=== PATIENT | male | born 1950 | race Caucasian/White ===

== ENCOUNTER 2018-05-22 23:51 | Inpatient (IN) | payer OTHER, MEDICARE ==
[2018-05-23] MEDS ORDERED: NORMAL SALINE 1000 ML 1,000 ML IV ONE (00:08)
--- NOTE | 2018-05-23 00:10 | ER Document Report ---
ED General - General Chief Complaint: Altered Mental Status Stated Complaint: ALTERED MENTAL STATUS Time Seen by Provider: 05/23/18 00:00 Notes: Patient is a 68-year-old male who comes emergency department for chief complaint of altered mental status. He is here with his grandson. Grandson stays with him, states he last saw him yesterday, states he came home today and found him walking around in the yard swatting at things that were not there. He was completely confused. He is normally completely oriented and does not have a history of dementia. No trauma, fever, or other abnormalities reported. On my examination patient will follow directions but he is unable to answer questions about what happened or where he is. Past medical history of insulin- dependent diabetes, son states that he was complaining of pain over his left ribs after he pulled a muscle (denies any fall or trauma), states he was prescribed this a couple of days ago and did not take more than the prescribed amount as far as he knows. He comes by EMS. Past Medical History - General Information source: Relative - grandson - Social History Smoking Status: Never Smoker Frequency of alcohol use: None Drug Abuse: None Lives with: Family Family History: Reviewed & Not Pertinent Patient has suicidal ideation: No Patient has homicidal ideation: No - Past Medical History Cardiac Medical History: Reports: Hx DVT Endocrine Medical History: Reports: Hx Diabetes Mellitus Type 2 Renal/ Medical History: Denies: Hx Peritoneal Dialysis - Immunizations Hx Diphtheria, Pertussis, Tetanus Vaccination: Yes Review of Systems - Review of Systems Constitutional: See HPI EENT: No symptoms reported Cardiovascular: No symptoms reported Respiratory: No symptoms reported Gastrointestinal: No symptoms reported Genitourinary: No symptoms reported Male Genitourinary: No symptoms reported Musculoskeletal: No symptoms reported Skin: No symptoms reported Hematologic/Lymphatic: No symptoms reported Neurological/Psychological: See HPI Physical Exam - Vital signs Vitals: Temp Pulse Resp BP Pulse Ox 97.6 F 102 H 19 123/74 90 L 05/22/18 23:59 05/22/18 23:59 05/22/18 23:59 05/22/18 23:59 05/22/18 23:59 - Notes Notes: GENERAL: Alert, no distress, disheveled appearance HEAD: Normocephalic, atraumatic. EYES: Pupils equal, round, and reactive to light. Extraocular movements intact. ENT: Oral mucosa moist, tongue midline. NECK: Full range of motion. Supple. Trachea midline. LUNGS: Clear to auscultation bilaterally, no wheezes, rales, or rhonchi. No respiratory distress. Occasional mild cough. HEART: Tachycardic, normal rhythm, no murmur ABDOMEN: Soft, non-tender. Non-distended. Bowel sounds present in all 4 quadrants. EXTREMITIES: Moves all 4 extremities spontaneously. No edema, normal radial and dorsalis pedis pulses bilaterally. No cyanosis. BACK: no cervical, thoracic, lumbar midline tenderness. No saddle anesthesia, normal distal neurovascular exam. NEUROLOGICAL: Patient is alert, he follows directions, however he is confused. He is unable to tell me where he is, who he is with, or the events of today. Normal upper and lower extremity strength, neurovascular exam. Cranial nerves grossly intact. SKIN: Warm, dry, normal turgor. No rashes or lesions noted. Course - Re-evaluation Re-evalutation: Patient is altered clearly on exam although he will follow directions. CAT scan of the head unremarkable, chest x-ray with no overt abnormality. Patient has no concerning physical exam findings, has mild cough, has had cough for a few days, mild leukocytosis, no fever. No overt evidence of pneumonia. Borderline hypoxia when he falls asleep, placed on 2 L nasal cannula and this resolved. Chemistry shows renal insufficiency, LFTs mildly elevated, direct bilirubin unremarkable, nontender abdomen. CK is elevated at greater than 2300, troponin indeterminate. Patient given IV fluids, will be given more. Urinalysis shows dehydration but no infection. Patient has improved since he arrived, he is more cooperative and calm, however he remains confused. Unsure if this is metabolic, medication related, or other etiology. Will admit for altered mental status, acute renal insufficiency, rhabdomyolysis. Discussed this with grandson. Patient actually states agreement with staying as well. Discussed with Dr. Cowan, patient will be admitted to telemetry full admission. - Vital Signs Vital signs: Temp Pulse Resp BP Pulse Ox 97.8 F 86 20 135/71 H 97 05/23/18 04:49 05/23/18 04:49 05/23/18 04:49 05/23/18 04:49 05/23/18 04:49 - Laboratory Result Diagrams: 05/22/18 22:36 05/23/18 00:50 Laboratory results interpreted by me: 05/22/18 05/23/18 05/23/18 22:36 00:37 00:50 WBC 13.7 H Absolute Neutrophils 10.6 H Sodium 146.9 H BUN 34 H Creatinine 1.70 H Est GFR ( Amer) 49 L Est GFR (Non-Af Amer) 40 L Glucose 150 H Total Bilirubin 2.0 H AST 100 H ALT 101 H Creatine Kinase 2399 H Total Protein 8.5 H Albumin 5.1 H Urine Protein 30 H Urine Ketones TRACE H Urine Blood SMALL H Urine Urobilinogen 2.0 H Salicylates < 1.0 L Acetaminophen < 10 L Discharge - Discharge Clinical Impression: Acute renal insufficiency Altered mental status Qualifiers: Altered mental status type: unspecified Qualified Code(s): R41.82 - Altered mental status, unspecified Rhabdomyolysis Qualifiers: Rhabdomyolysis type: non-traumatic Qualified Code(s): M62.82 - Rhabdomyolysis Condition: Stable Disposition: ADMITTED INPATIENT Admitting Provider: Hospitalist Unit Admitted: Telemetry
[2018-05-23 00:32] LABS: ABSOLUTE LYMPHOCYTES (AUTO) 1.8 10^3/uL (0.5-4.7); ABSOLUTE MONOCYTES (AUTO) 1.2 10^3/uL (0.1-1.4); ABSOLUTE NEUT (AUTO) 10.6 10^3/uL (1.7-8.2); BASOPHILS % (AUTO) 0.2 % (0-2); EOSINOPHILS % (AUTO) 0.2 % (0-6); HEMATOCRIT 49.9 % (37.9-51.0); HEMOGLOBIN 16.9 g/dL (13.5-17.0); LYMPHOCYTES % (AUTO) 13.2 % (13-45); MEAN CORPUSCULAR HEMOGLOBIN 30.9 pg (27.0-33.4); MEAN CORPUSCULAR HGB CONC 33.8 g/dL (32.0-36.0); MEAN CORPUSCULAR VOLUME 91 fl (80-97); PLATELET COUNT 290 10^3/uL (150-450); RED BLOOD COUNT 5.46 10^6/uL (4.35-5.55); RED CELL DISTRIBUTION WIDTH 13.4 % (11.5-14.0); SEGMENTED NEUTROPHILS % (AUTO) 77.4 % (42-78); TOTAL CELLS COUNTED % (AUTO) 100 %; WHITE BLOOD COUNT 13.7 10^3/uL (4.0-10.5)
[2018-05-23 00:57] LABS: APPEARANCE,URINE SLIGHTLY-CLOUDY; BILIRUBIN,URINE NEGATIVE (NEGATIVE); COLOR,URINE AMBER; GLUCOSE, URINE NEGATIVE (NEGATIVE); KETONES,URINE TRACE mg/dL (NEGATIVE); LEUKOCYTE ESTERASE,URINE NEGATIVE (NEGATIVE); NITRITE,URINE NEGATIVE (NEGATIVE); PROTEIN,URINE 30 mg/dL (NEGATIVE); URINE SPECIFIC GRAVITY 1.018
[2018-05-23 01:10] LABS: URINE AMPHETAMINES SCREEN NEGATIVE; URINE BARBITURATES SCREEN NEGATIVE; URINE BENZODIAZEPINES SCREEN NEGATIVE; URINE COCAINE SCREEN NEGATIVE; URINE MARIJUANA (THC) SCREEN NEGATIVE; URINE METHADONE SCREEN NEGATIVE; URINE PHENCYCLIDINE SCREEN NEGATIVE
[2018-05-23 01:14] LABS: ALANINE AMINOTRANSFERASE 101 U/L (21-72); ALBUMIN 5.1 g/dL (3.5-5.0); ALKALINE PHOSPHATASE 73 U/L (38-126); ANION GAP 18 (5-19); ASPARTATE AMINO TRANSFERASE 100 U/L (17-59); BILIRUBIN,DIRECT 0.4 mg/dL (0.0-0.4); BLOOD UREA NITROGEN 34 mg/dL (7-20); CARBON DIOXIDE 24 mmol/L (22-30); CHLORIDE 105 mmol/L (98-107); GLUCOSE 150 mg/dL (75-110); POTASSIUM 4.6 mmol/L (3.6-5.0); SODIUM 146.9 mmol/L (137-145); TOTAL PROTEIN 8.5 g/dL (6.3-8.2)
[2018-05-23 01:15] LABS: ACETAMINOPHEN < 10 ug/mL (10-30); ALCOHOL < 10 mg/dL (NONE DETECTED); SALICYLATE < 1.0 mg/dL (2.0-20.0)
[2018-05-23 01:24] LABS: CREATINE KINASE 2399 U/L (55-170)
--- NOTE | 2018-05-23 01:32 | RADIOLOGY REPORT (SQ) ---
CT HEAD NON CONTRAST Clinical history: Acute mental status change Technique: Multiple axial images are taken from the level the vertex down to the base of the skull without the use of IV contrast. Sagittal and coronal reconstructed images are also performed. Exam was performed using the lowest radiation dose possible to allow for diagnostic images. This exam was performed according to our departmental dose-optimization program which includes use of Automated Exposure Control, adjustment of the mA and/or kV according to patient size and/or use of iterative reconstruction technique. Comparison: None. Findings: There is no evidence for acute intraparenchymal hemorrhage. There is no midline shift. There is no abnormal extra-axial fluid collection. Ventricles measure within normal limits. Sinuses are well aerated. Mastoid air cells well aerated. No evidence for depressed calvarial skull fracture. Soft tissues are grossly unremarkable. Impression: No noncontrast CT evidence for acute intracranial pathology.
--- NOTE | 2018-05-23 01:42 | RADIOLOGY REPORT (SQ) ---
CHEST XRAY CLINICAL HISTORY: Chest pain COMPARISON: None. TECHNIQUE: 2 view chest is submitted for review. FINDINGS: Lung volumes are low without evidence for acute infiltrate or effusion. Eventration of the right hemidiaphragm is demonstrated. The cardiac silhouette is enlarged, Pulmonary vascularity is unremarkable. Osseous structures are within expected limits for patients age. . IMPRESSION: Cardiomegaly which may be accentuated by low lung volumes.
[2018-05-23] MEDS: NORMAL SALINE 1000 ML 1,000 ML IV PRN (02:13)
[2018-05-23] MEDS ORDERED: IPRATROPIUM/ALBUTEROL 0.5-2.5 MG/3 ML AMPUL NEB PRN (02:25)
[2018-05-23] MEDS ORDERED: NORMAL SALINE 1000 ML 1,000 ML IV PRN (02:25)
[2018-05-23] MEDS ORDERED: ACETAMINOPHEN 325 MG TABLET PO PRN (02:25)
[2018-05-23] MEDS ORDERED: ONDANSETRON HCL INJ/PF 4 MG/2 ML SDV IV PRN (02:25)
--- NOTE | 2018-05-23 07:26 | PDOC H&P ---
History of Present Illness Admission Date/PCP: 05/23/18 02:25 Patient complains of: Altered mental status History of Present Illness: ANNIE MCKEON is a 68 year old male with a past medical history of diabetes who comes emergency department for chief complaint of altered mental status. He is here with his grandson. Grandson stays with him, states he last saw him yesterday, states he came home today and found him walking around in the yard swatting at things that were not there. He was completely confused. He is normally completely oriented and does not have a history of dementia. No trauma , fever, or other abnormalities reported. Patient is able to follow directions but he is unable to answer questions about what happened or where he is. As per his son states that he was complaining of pain over his left ribs after he pulled a muscle (denies any fall or trauma), states he was prescribed Flexeril a couple of days ago and did not take more than the prescribed amount as far as he knows. No history of abdominal pain no chest pain or shortness of breath nausea vomiting or diarrhea. No history of urinary symptoms. No focal weakness or numbness. On arrival to the emergency nasal vitals are stable. His laboratory workup showed white count of 13,000. His chemistry showed sodium of 147 with BUN of 34 and creatinine was 1.7. No baseline labs available to compare. His CK was 2400. Troponin was negative. UA was unremarkable. Urine toxicology was unremarkable. CT head was unremarkable. Chest x-ray shows cardiomegaly without acute process. Patient was referred to hospital service for further workup of altered mental status. Past Medical History Cardiac Medical History: Reports: DVT Endocrine Medical History: Reports: Diabetes Mellitus Type 2 Past Surgical History Past Surgical History: Reports: None Social History Information Source: Relative Lives with: Family Smoking Status: Never Smoker Last Time Smoked: 30 years ago Frequency of Alcohol Use: None Hx Recreational Drug Use: No Drugs: None Hx Prescription Drug Abuse: No Family History Family History: Reviewed & Not Pertinent Parental Family History Reviewed: No Children Family History Reviewed: No Sibling(s) Family History Reviewed.: No Review of Systems All systems: reviewed and no additional remarkable complaints except as stated Physical Exam Vital Signs: Temp Pulse Resp BP Pulse Ox 97.8 F 86 20 135/71 H 97 05/23/18 04:49 05/23/18 04:49 05/23/18 04:49 05/23/18 04:49 05/23/18 04:49 Intake & Output 05/21/18 05/22/18 05/23/18 06:59 06:59 06:59 Weight 210 lb 8.663 oz General appearance: PRESENT: no acute distress, well-developed, well-nourished Head exam: PRESENT: atraumatic, normocephalic Eye exam: ABSENT: conjunctival injection, conjunctiva pink, conjunctiva pale, EOMI, nystagmus, periorbital swelling, PERRLA, scleral icterus, other Ear exam: ABSENT: bleeding, drainage, normal external ear exam, TM's normal bilaterally, other Mouth exam: PRESENT: moist Teeth exam: ABSENT: dental caries, dental tenderness, edentulous, poor dentation , other Neck exam: ABSENT: carotid bruit, JVD, meningismus, thyromegaly Respiratory exam: PRESENT: clear to auscultation feli. ABSENT: crackles, rhonchi Cardiovascular exam: PRESENT: RRR, +S1, +S2. ABSENT: gallop, rubs, systolic murmur GI/Abdominal exam: PRESENT: normal bowel sounds, soft. ABSENT: organolmegaly, tenderness Rectal exam: PRESENT: deferred Gentrourinary exam: ABSENT: ecchymosis, erythema, lacerations, lesions, scrotal swelling, testicular tenderness, urethral discharge, indwelling catheter, other Extremities exam: ABSENT: calf tenderness, clubbing, full ROM, joint swelling, pedal edema, tenderness, +1 edema, +2 edema, other Musculoskeletal exam: PRESENT: ambulatory Neurological exam: PRESENT: alert, awake, CN II-XII grossly intact. ABSENT: oriented to place, oriented to time, oriented to situation, motor sensory deficit Psychiatric exam: ABSENT: homicidal ideation, suicidal ideation Focused psych exam: PRESENT: delusional, restlessness Skin exam: PRESENT: rash Results Laboratory Results: Labs reviewed. Impressions: Chest X-Ray 05/23/18 00:08 IMPRESSION: Cardiomegaly which may be accentuated by low lung volumes. Status: Image reviewed by me Assessment & Plan - Diagnosis (1) Altered mental status Qualifiers: Altered mental status type: disorientation Qualified Code(s): R41.0 - Disorientation, unspecified Is this a current diagnosis for this admission?: Yes Plan: Patient with confusion and disorientation of unknown etiology. CT head is negative for acute process. No focal deficit on exam. Likely metabolic secondary to renal insufficiency and rhabdomyolysis. No fever or signs of meningitis. We will continue frequent neuro check. Continue IV fluids. Hold Flexeril. Hold sedating medication. If no change in mental status we will consider MRI. (2) Acute renal insufficiency Is this a current diagnosis for this admission?: Yes Plan: Unknown baseline creatinine. Will continue IV fluid and recheck BMP in a.m. (3) Rhabdomyolysis Qualifiers: Rhabdomyolysis type: non-traumatic Qualified Code(s): M62.82 - Rhabdomyolysis Is this a current diagnosis for this admission?: Yes Plan: Patient with rhabdomyolysis on unknown etiology. Continue IV fluids. Patient has mild renal insufficiency as well. Will recheck CK in the morning.. (4) Diabetes 1.5, managed as type 2 Is this a current diagnosis for this admission?: No Plan: Patient is currently on insulin. We will continue insulin sliding scale. - Time Time Spent: 50 to 70 Minutes - Inpatient Certification Based on my medical assessment, after consideration of the patient's comorbidities, presenting symptoms, or acuity I expect that the services needed warrant INPATIENT care.: No I certify that my determination is in accordance with my understanding of Medicare's requirements for reasonable and necessary INPATIENT services [42 CFR 412.3e].: No
[2018-05-23] MEDS ORDERED: LORAZEPAM INJ 2 MG/1 ML VIAL ONE (07:56)
[2018-05-23] MEDS ORDERED: HALOPERIDOL LACTATE INJ 5 MG/1 ML VIAL ONE (08:03)
[2018-05-23] MEDS: DOXYCYCLINE HYCLATE 100 MG in DEXTROSE 5%-WATER 250 ML IV SCH ×2 (10:44→22:04)
[2018-05-23] MEDS: HALOPERIDOL LACTATE INJ 5 MG/1 ML VIAL IV PRN ×3 (10:45→18:15)
[2018-05-23] MEDS: ENOXAPARIN SODIUM INJ 30 MG/0.3 ML DISP.SYRIN SUBCUT SCH (10:45)
--- NOTE | 2018-05-23 11:49 | Progress Note ---
Provider Note Provider Note: This is 68 years old male patient admitted this morning for altered mental status. So far no explanation for his acute mental status changes except he is dehydrated and has acute kidney injury. Accept this patient and his primary attending.
[2018-05-23] MEDS ORDERED: HALOPERIDOL LACTATE INJ 5 MG/1 ML VIAL IV ONE (15:00)
--- NOTE | 2018-05-23 21:22 | EKG REPORT ---
SEVERITY:- OTHERWISE NORMAL ECG - SINUS TACHYCARDIA : Confirmed by: Consuelo Taylor 23-May-2018 21:21:00
[2018-05-24] MEDS ORDERED: MORPHINE SULFATE 10 MG/ML INJ ONE (00:30)
[2018-05-24 04:54] LABS: ABSOLUTE EOSINOPHILS # (AUTO) 0.1 10^3/uL (0.0-0.6); ABSOLUTE LYMPHOCYTES (AUTO) 1.7 10^3/uL (0.5-4.7); ABSOLUTE MONOCYTES (AUTO) 0.6 10^3/uL (0.1-1.4); ABSOLUTE NEUT (AUTO) 5.2 10^3/uL (1.7-8.2); BASOPHILS % (AUTO) 0.3 % (0-2); EOSINOPHILS % (AUTO) 1.7 % (0-6); HEMATOCRIT 40.8 % (37.9-51.0); HEMOGLOBIN 13.9 g/dL (13.5-17.0); LYMPHOCYTES % (AUTO) 22.2 % (13-45); MEAN CORPUSCULAR HEMOGLOBIN 31.3 pg (27.0-33.4); MEAN CORPUSCULAR VOLUME 92 fl (80-97); MONOCYTES % (AUTO) 8.1 % (3-13); PLATELET COUNT 176 10^3/uL (150-450); RED BLOOD COUNT 4.43 10^6/uL (4.35-5.55); RED CELL DISTRIBUTION WIDTH 13.3 % (11.5-14.0); SEGMENTED NEUTROPHILS % (AUTO) 67.7 % (42-78); TOTAL CELLS COUNTED % (AUTO) 100 %; WHITE BLOOD COUNT 7.7 10^3/uL (4.0-10.5)
[2018-05-24 05:07] LABS: ALANINE AMINOTRANSFERASE 86 U/L (21-72); ALKALINE PHOSPHATASE 55 U/L (38-126); ANION GAP 11 (5-19); ASPARTATE AMINO TRANSFERASE 93 U/L (17-59); BILIRUBIN,DIRECT 0.3 mg/dL (0.0-0.4); BILIRUBIN,TOTAL 1.7 mg/dL (0.2-1.3); BLOOD UREA NITROGEN 23 mg/dL (7-20); CALCIUM 8.7 mg/dL (8.4-10.2); CARBON DIOXIDE 27 mmol/L (22-30); CHLORIDE 105 mmol/L (98-107); CREATINE KINASE 1413 U/L (55-170); GLUCOSE 110 mg/dL (75-110); POTASSIUM 3.6 mmol/L (3.6-5.0); SODIUM 142.8 mmol/L (137-145); TOTAL PROTEIN 6.7 g/dL (6.3-8.2)
--- NOTE | 2018-05-24 09:22 | EKG REPORT ---
SEVERITY:- NORMAL ECG - SINUS RHYTHM : Confirmed by: Consuelo Taylor 24-May-2018 09:22:08
[2018-05-24] MEDS: DOXYCYCLINE HYCLATE 100 MG in DEXTROSE 5%-WATER 250 ML IV SCH ×2 (10:24→21:50)
[2018-05-24] MEDS: NORMAL SALINE 1000 ML 1,000 ML IV PRN (10:25)
[2018-05-24] MEDS: ENOXAPARIN SODIUM INJ 30 MG/0.3 ML DISP.SYRIN SUBCUT SCH (10:25)
--- NOTE | 2018-05-24 13:41 | PDOC PROGRESS REPORT ---
Subjective Subjective:: This is 68 years old male patient who does not have significant medical history except type 2 diabetes mellitus brought by EMS with chief complaint of altered mental status. His initial workup is unremarkable except mild rhabdomyolysis. CT scan of the head is negative. MRI of the brain could not be done since patient is claustrophobic and Ativan and Haldol could not calm him down. This morning I seen patient with his grandson in the room, patient is awake alert oriented and more cooperative. I started him on doxycycline empirically because I seen nonblanching petechial rash over both his ankles but this morning he told me it is from chiggers bite. I feel his altered mental state is more of due to dehydration he states also that she will have the MRI as outpatient. Reason For Visit: ALTERED MENTAL STATUS, ACUTE RENAL FAILURE Physical Exam Vital Signs: Temp Pulse Resp BP Pulse Ox 98.1 F 90 18 141/65 H 93 05/24/18 12:01 05/24/18 13:03 05/24/18 13:03 05/24/18 12:01 05/24/18 13:03 Intake & Output 05/23/18 05/24/18 05/25/18 06:59 06:59 06:59 Intake Total 740 Output Total 500 Balance 240 Weight 97.3 kg General appearance: PRESENT: no acute distress, well-developed, well-nourished Head exam: PRESENT: atraumatic, normocephalic Eye exam: PRESENT: conjunctiva pink, EOMI, PERRLA. ABSENT: scleral icterus Ear exam: PRESENT: normal external ear exam Mouth exam: PRESENT: moist, tongue midline Neck exam: ABSENT: carotid bruit, JVD, lymphadenopathy, thyromegaly Respiratory exam: PRESENT: clear to auscultation feli. ABSENT: rales, rhonchi, wheezes Cardiovascular exam: PRESENT: RRR. ABSENT: diastolic murmur, rubs, systolic murmur Pulses: PRESENT: normal dorsalis pedis pul Vascular exam: PRESENT: normal capillary refill GI/Abdominal exam: PRESENT: normal bowel sounds, soft. ABSENT: distended, guarding, mass, organolmegaly, rebound, tenderness Rectal exam: PRESENT: deferred Extremities exam: PRESENT: full ROM. ABSENT: calf tenderness, clubbing, pedal edema Neurological exam: PRESENT: alert, awake, oriented to person, oriented to place , oriented to time, oriented to situation, CN II-XII grossly intact. ABSENT: motor sensory deficit Psychiatric exam: PRESENT: appropriate affect, normal mood. ABSENT: homicidal ideation, suicidal ideation Skin exam: PRESENT: dry, intact, warm. ABSENT: cyanosis, rash Results Laboratory Results: 05/24/18 04:36 05/24/18 04:36 05/24/18 05/24/18 04:36 04:36 WBC 7.7 RBC 4.43 Hgb 13.9 D Hct 40.8 MCV 92 MCH 31.3 MCHC 34.0 RDW 13.3 Plt Count 176 Seg Neutrophils % 67.7 Lymphocytes % 22.2 Monocytes % 8.1 Eosinophils % 1.7 Basophils % 0.3 Absolute Neutrophils 5.2 Absolute Lymphocytes 1.7 Absolute Monocytes 0.6 Absolute Eosinophils 0.1 Absolute Basophils 0.0 Sodium 142.8 Potassium 3.6 Chloride 105 Carbon Dioxide 27 Anion Gap 11 BUN 23 H Creatinine 0.82 Est GFR ( Amer) > 60 Est GFR (Non-Af Amer) > 60 Glucose 110 Calcium 8.7 Total Bilirubin 1.7 H AST 93 H ALT 86 H Alkaline Phosphatase 55 Total Protein 6.7 Albumin 4.0 05/24/18 04:36 Creatine Kinase 1413 H Impressions: Chest X-Ray 05/23/18 00:08 IMPRESSION: Cardiomegaly which may be accentuated by low lung volumes. Assessment & Plan - Diagnosis (1) Altered mental status Is this a current diagnosis for this admission?: Yes Plan: Due to metabolic encephalopathy. Now has resolved (2) Acute kidney injury Is this a current diagnosis for this admission?: Yes Plan: Continue gentle hydration (3) Type 2 diabetes mellitus Is this a current diagnosis for this admission?: Yes Plan: Diet controlled
[2018-05-25] MEDS: NORMAL SALINE 1000 ML 1,000 ML IV PRN ×2 (00:44→09:20)
[2018-05-25 08:22] VITALS: BP 151/66
[2018-05-25] MEDS ORDERED: ENOXAPARIN SODIUM INJ 40 MG/0.4 ML DISP.SYRIN SUBCUT SCH (10:00)
[2018-05-25] MEDS: DOXYCYCLINE HYCLATE 100 MG in DEXTROSE 5%-WATER 250 ML IV SCH (10:25)
--- NOTE | 2018-05-25 15:08 | PDOC DISCHARGE SUMMARY ---
General - Admit/Disc Date/PCP Admission Date/Primary Care Provider: 05/23/18 13:26 Discharge Date: 05/25/18 - patient left AMA - Discharge Diagnosis (1) Acute kidney injury Is this a current diagnosis for this admission?: Yes Summary: improved. but patient left AMA before i could evaluate him this morning (2) Rhabdomyolysis Is this a current diagnosis for this admission?: Yes Summary: improving but still high. patients son did not want to stay in hospital since they want to go to [place] for open MRI. they wanted to leave AMA - Additional Information Home Medications: Unobtainable [Unobtainable] 05/23/18 History of Present Illness History of Present Illness: ANNIE MCKEON is a 68 year old male Hospital Course Hospital Course: patient admitted for [place] and rhabdo- called from nurse this morning stating that patients wants discharge now. told her that I am rounding in the ICU and I will be there very soon. went to evaluate patient but he was already getting dressed and ready to go. spoke to him about his results of rhabdo and that he needs more IV fluids. his son states that patient needs MRI now and since patient cannot tolerate MRI in our machine - they have found a machine in another city which is OPEN MRI and son is going to take patient there. I tried to explain to patient about MRI and our CT scan results but son and patient doesn't want to stay. states they need MRI now and that is more important fluids. neither patient nor son gave me a change to explain and brushed me off and wanted to leave now. i told them that leaving would be against medical advice and this could leave to worsening signs/symptoms and even . they verbalized understanding but still demanding to go. Physical Exam Vital Signs: Temp Pulse Resp BP Pulse Ox 98.8 F 78 20 151/66 H 96 05/25/18 08:20 05/25/18 08:20 05/25/18 08:20 05/25/18 08:20 05/25/18 08:20 Intake & Output 05/24/18 05/25/18 05/26/18 06:59 06:59 06:59 Intake Total 740 2019 1250 Output Total 500 Balance 240 2019 1250 Weight 214 lb 8.156 oz 214 lb 8.156 oz General appearance: PRESENT: other - patient left AMA - unable to perform exam Results Laboratory Results: 05/24/18 04:36 05/24/18 04:36 05/24/18 05/25/18 04:36 04:51 Creatine Kinase 1413 H 724 H Impressions: Chest X-Ray 05/23/18 00:08 IMPRESSION: Cardiomegaly which may be accentuated by low lung volumes. Qualifiers - * PATIENT BEING DISCHARGED WITH ANY OF THE FOLLOWING DIAGNOSIS: No - left AMA VTE patient discharged on overlapping Therapy?: No Plan Discharge Plan: patient left AMA
== END 2018-05-25 11:19 | disposition left against medical advice (07) | DRG 682 ==
LOC: ER 23:51 → INTOOBSV 05-23 02:25 → EH 05-23 02:25 → 3W 05-23 04:41 → OBSVTOIN 05-23 13:26
PROVIDERS: ADMIT Internal Medicine; ATTEND Internal Medicine
PROC: 3E0F73Z Introduction of Anti-inflammatory into Respiratory Tract, Via Natural or Artificial Opening (ICD-10-PCS; principal; 2018-05-23)
DX: N17.9 Acute kidney failure, unspecified (principal); G93.41 Metabolic encephalopathy; M62.82 Rhabdomyolysis; E11.9 Type 2 diabetes mellitus without complications; Z86.718 Personal history of other venous thrombosis and embolism
CPT/HCPCS: 36415; 70450; 71045; 80053; 80307; 81001; 82140; 82550; 82962; 84484; 85025; 93005; 93010; 96360; 96361; 99285; G0378; J1630; J1650; J2060; J3490; J7030; J7060

== ENCOUNTER → 2018-07-23 | Outpatient (CLI) | payer MEDICARE, OTHER ==
--- NOTE | 2018-07-23 13:06 | RADIOLOGY REPORT (SQ) ---
EXAM DESCRIPTION: U/S ABDOMEN LIMITED W/O DOP COMPLETED DATE/TIME: 07/23/2018 10:56 am REASON FOR STUDY: FATTY LIVER (K76.0) K76.0 FATTY (CHANGE OF) LIVER, NOT ELSEWHERE CLASSIFIED COMPARISON: None. TECHNIQUE: Dynamic and static grayscale images acquired of the abdomen and recorded on PACS. Additio nal selected color Doppler and spectral images recorded. LIMITATIONS: None. FINDINGS: PANCREAS: No masses. No peripancreatic edema or fluid collections. LIVER: Echotexture is coarse with increased echogenicity consistent with fatty infiltration. LIVER VASCULATURE: Normal directional flow of the main portal vein and hepatic veins. GALLBLADDER: Gallstone(s). No pericholecystic fluid. No wall thickening. ULTRASOUND-DETECTED DOVE'S SIGN: Negative. INTRAHEPATIC DUCTS AND COMMON DUCT: CBD and intrahepatic ducts normal caliber. No filling defects. INFERIOR VENA CAVA: Normal flow. AORTA: No aneurysm. RIGHT KIDNEY: Normal size. Normal echogenicity. No solid or suspicious masses. No hydronephros is. No calcifications. PERITONEAL AND RIGHT PLEURAL SPACE: No ascites or effusions. OTHER: No other significant finding. IMPRESSION: Cholelithiasis. No evidence of acute cholecystitis. TECHNICAL DOCUMENTATION: JOB ID: [id number] [employer]- All Rights Reserved Reading location - IP/workstation name: [email or web address]
== END ==
LOC: RAD 10:22
PROVIDERS: ATTEND Family Medicine
DX: K76.0 Fatty (change of) liver, not elsewhere classified (principal); K80.20 Calculus of gallbladder without cholecystitis without obstruction
CPT/HCPCS: 76705

== ENCOUNTER → 2019-11-15 | Outpatient (CLI) | payer OTHER ==
--- NOTE | 2019-11-15 16:54 | RADIOLOGY REPORT (SQ) ---
EXAM DESCRIPTION: CHEST PA/LATERAL COMPLETED DATE/TIME: 11/15/2019 3:49 pm REASON FOR STUDY: COUGH COMPARISON: None. EXAM PARAMETERS: NUMBER OF VIEWS: two views TECHNIQUE: Digital Frontal and Lateral radiographic views of the chest acquired. RADIATION DOSE: NA LIMITATIONS: none FINDINGS: LUNGS AND PLEURA: No opacities, masses or pneumothorax. No pleural effusion. MEDIASTINUM AND HILAR STRUCTURES: No masses or contour abnormalities. HEART AND VASCULAR STRUCTURES: Heart normal size. No evidence for failure. BONES: No acute findings. HARDWARE: None in the chest. OTHER: No other significant finding. IMPRESSION: NO SIGNIFICANT RADIOGRAPHIC FINDING IN THE CHEST. TECHNICAL DOCUMENTATION: JOB ID: [id number] [employer]- All Rights Reserved Reading location - IP/workstation name: [email or web address]
== END ==
LOC: OD 15:29
PROVIDERS: ATTEND Family Medicine
DX: R05 Cough (principal)
CPT/HCPCS: 71046